=== PATIENT | female | born 1960 | race Caucasian/White ===

== ENCOUNTER 2024-08-25 13:24 | Emergency (ER) | payer OTHER ==
[~2024-08-25] VITALS: Ht 157.5 cm; Wt 108.0 kg
[2024-08-25 13:28] VITALS: O2SAT 98
[2024-08-25] MEDS ORDERED: MECLIZINE 25MG TABLET PO ONE (13:45)
[2024-08-25 14:09] LABS: BASOPHILS % 0.7 % (0.0-2.0); EOSINOPHILS % 1.8 % (0.0-5.0); HEMATOCRIT. 42.9 % (36.0-48.0); HEMOGLOBIN. 14.4 g/dL (12.0-16.0); LYMPHOCYTES % 23.9 % (20.0-50.0); MEAN CORPUSCULAR HEMOGLOBIN 27.8 pg (28.0-32.0); MEAN CORPUSCULAR HGB CONC 33.5 g/dL (31.0-37.0); MEAN CORPUSCULAR VOLUME 83.1 fL (81.0-99.0); MEAN PLATELET VOLUME 9.1 fl (7.4-10.4); MONOCYTES % 6.2 % (2.0-8.0); NEUTROPHILS % 67.4 % (40.0-76.0); PLATELET 240 x1000/uL (130-400); RED BLOOD CELL COUNT 5.17 mill/uL (4.2-5.4); RED CELL DISTRIBUTION WIDTH 14.8 % (11.6-14.6); WHITE BLOOD COUNT 9.7 x1000/uL (4.5-11.0)
[2024-08-25 14:26] LABS: CHLORIDE 104 mEq/L (98-107); POTASSIUM 3.6 mEq/L (3.5-5.1); SODIUM 141 mEq/L (136-145)
[2024-08-25 14:27] LABS: CARBON DIOXIDE 26 mEq/L (21-32)
[2024-08-25 14:32] LABS: CREATININE 0.7 mg/dL (0.6-1.0); GLUCOSE 188 mg/dL (70-105)
[2024-08-25 14:33] LABS: UREA NITROGEN BLOOD 17 mg/dL (9-23)
[2024-08-25 14:34] LABS: TROPONIN I HIGH SENSITIVITY < 4 ng/L (3.0-34)
[2024-08-25 14:36] LABS: PROTHROMBIN TIME 10.5 sec (9.6-11.0)
[2024-08-25 15:12] LABS: PHOSPHORUS 3.1 mg/dL (2.5-4.9)
[2024-08-25] MEDS: DIPHENHYDRAMINE 50MG/ML VIAL IV ONE (15:15)
[2024-08-25] MEDS: MECLIZINE 25MG TABLET PO SCH (15:15)
[2024-08-25] MEDS: SODIUM CHLORIDE 0.9% 1,000 ML IV ONE (15:15)
[2024-08-25] MEDS: ONDANSETRON HCL 4MG/2ML INJ IV ONE (15:15)
[2024-08-25 17:10] LABS: CLARITY URINE CLEAR (CLEAR); COLOR URINE YELLOW (YELLOW); GLUCOSE URINE NEGATIVE (NEGATIVE); KETONES URINE NEGATIVE (NEGATIVE); LEUKOCYTE ESTERASE URINE 2+ (NEGATIVE); NITRITE URINE NEGATIVE (NEGATIVE); OCCULT BLOOD URINE NEGATIVE (NEGATIVE); PROTEIN URINE TRACE (NEGATIVE); SPECIFIC GRAVITY URINE 1.013 (1.005-1.030); UROBILINOGEN URINE 0.2 E.U./dL (0.2-1.0)
[2024-08-25 17:23] LABS: BACTERIA URINE 1+; RBC URINE 0-2 /hpf (0-2); SQUAMOUS EPITHELIAL CELL URINE 1+ /lpf (RARE/1+)
[2024-08-25 19:19] VITALS: BP 142/82; PULSE 84; RESP 16; TEMP 36.8; O2SAT 95
== END 2024-08-25 19:23 | disposition home or self-care (01) ==
LOC: ER 13:24
DX: H81.399 Other peripheral vertigo, unspecified ear (principal); E11.9 Type 2 diabetes mellitus without complications; I10 Essential (primary) hypertension; Z88.0 Allergy status to penicillin; Z98.890 Other specified postprocedural states; Z79.899 Other long term (current) drug therapy
CPT/HCPCS: 80048; 81003; 82962; 83880; 83735; 84100; 85025; 85610; 84484; 36415; 71045; 70450; 70551; 93005; 96361; 96374; 96375; 99285; J8597; J1200; J2405; J7030; Z7610 ×2; A4606